=== PATIENT | male | born 1940 | race Caucasian/White ===

== ENCOUNTER 2022-02-22 16:41 | Emergency (ER) | payer MEDICARE, MEDICAID ==
[~2022-02-22] VITALS: Ht 162.5 cm; Wt 110.0 kg
[~2022-02-22 16:41] MED LIST: AC500T PO; AMLO1TAB65 PO; ASP81CT PO; ATR20T PO; CALC625T PO; CLN.1T PO; CPAP; DIPH25TA82 PO; DORZ10DR19 OU; FISH1200 PO; FLUT50DI IH; FNT25TD TD; FURO80TA3 PO; HYDR-3720 PO; LORA10TA56 PO; METAMUCIL PO; MUPI22OI29 TP; NFNEB10T PO; OXYGEN; VIT1CAPS5 PO; WARF7.5T PO
[2022-02-22 16:49] VITALS: BP 167/88
[2022-02-22] MEDS ORDERED: PRD20T PO (17:30)
--- NOTE | 2022-02-22 17:30 | ED Back Pain ---
General Chief Complaint: Back Problems Stated Complaint: BACK PAIN Nursing Triage Note: pt to room by wheelchair. pt states he drove himself here. pt states he started physical therapy last week and began having back pain the day after PT. pt states his back pain is in his right lower side and describes it as sharp, shooting, and stabbing. pt states he has been taking tylenol and took an oxycodone about 30-45 mins [employer] Source of Information: Patient Exam Limitations: No Limitations History of Present Illness Date Seen by Provider: February 22, 2022 Time Seen by Provider: 17:10 Allergies and Home Medications Allergies Coded Allergies: Brimonidine (Unverified Adverse Reaction, 06/02/10) Patient Home Medication List Acetaminophen (Tylenol) 500 Mg Tablet, 1-2 TAB PO Q6HR PRN, (Reported) Entered as Reported by: GUNNER TUTTLE on 06/02/10606 Amlodipine Bes/Olmesartan Med (Matheus 10-40 Mg Tablet) 1 Each Tablet, 1 TAB PO Q P.M., (Reported) Entered as Reported by: GUNNER TUTTLE on 06/02/10606 Aspirin (Aspirin 81 Mg Chew Tab) 81 Mg Chew, 81 MG PO DAILY, (Reported) Entered as Reported by: GUNNER TUTTLE on 06/02/10606 Atorvastatin (Lipitor 20MG) 20 Mg Tablet, 1 TAB PO DAILY, (Reported) Entered as Reported by: GUNNER TUTTLE on 06/02/10606 Calcium Polycarbophil (Fibercon) 625 Mg Tablet, 2-4 CAP PO PRN, (Reported) Entered as Reported by: GUNNER TUTTLE on 06/02/10606 Clonidine Hcl (Catapres Tab) 0.1 Mg Tab, 0.6 MG PO BID, (Reported) Entered as Reported by: GUNNER TUTTLE on 06/02/10606 Diphenhydramine Hcl (Diphenhydramine 25 Mg) 25 Mg Tablet, 25 MG PO HS PRN, ( Reported) Entered as Reported by: GUNNER TUTTLE on 06/02/10606 Fentanyl (Duragesic 25MCG Patch) 1 Ea Patch, 1 PATCH TD Q72HR, (Reported) Entered as Reported by: GUNNER TUTTLE on 06/02/10606 Fish Oil/Fat No.8/Hrb Comb.137 ([place] 3-6-9 1,200 Mg Softgel) 1,200 Mg Capsule, 2 TAB PO BID, (Reported) Entered as Reported by: GUNNER TUTTLE on 06/02/10606 Fluticasone Propionate (Flovent Diskus) 50 Mcg Disk.w.dev, 2 SPRAY IH 1-2 TIMES MONTHLY, (Reported) Entered as Reported by: GUNNER TUTTLE on 06/02/10606 Furosemide (Furosemide) 80 Mg Tablet, 1 TAB PO EVERY 3RD DAY, (Reported) Entered as Reported by: GUNNER TUTTLE on 06/02/10606 Hydrocodone Bit/Acetaminophen (Lortab 10-325 Mg) 1 Ea Tab, 2 TAB PO Q6HR PRN, (Reported) Entered as Reported by: GUNNER TUTTLE on 06/02/10606 Loratadine (Allergy) 10 Mg Tablet, 1 TAB PO PRN, (Reported) Entered as Reported by: GUNNER TUTTLE on 06/02/10606 Mupirocin (Bactroban Tube) 22 Gm Oint, 1 UNIT TP BID, (Reported) Entered as Reported by: GUNNER TUTTLE on 06/02/10606 Nebivolol Hcl (Bystolic) 10 Mg Tablet, 10 MG PO DAILY, (Reported) Entered as Reported by: GUNNER TUTTLE on 06/02/10606 Timolol Maleate/Dorzolam Hcl (Dorzolamide-Timolol Eye Drops) 10 Ml Drops, 1 DROP OU BID, (Reported) Entered as Reported by: GUNNER TUTTLE on 06/02/10606 Vit A/Vit C/Vit E/Zinc/Copper (Preservision Areds Softgel) 1 Each Capsule, 1 TAB PO BID, (Reported) Entered as Reported by: GUNNER TUTTLE on 06/02/10606 Warfarin Sod (Coumadin) 7.5 Mg Tablet, 1 TAB PO Q P.M., (Reported) Entered as Reported by: GUNNER TUTTLE on 06/02/10606 [Cpap] , (Reported) Entered as Reported by: GUNNER TUTTLE on 06/02/10606 [Metamucil] , 4-5 CAP PO DAILY, (Reported) Entered as Reported by: GUNNER TUTTLE on 06/02/10606 [Oxygen] , (Reported) Entered as Reported by: GUNNER TUTTLE on 06/02/10 06 Physical Exam Vital Signs Vital Signs - First Documented 02/22/22 16:49 Temp 36.3 Pulse 64 Resp 16 B/P (MAP) 167/88 (114) Pulse Ox 99 Capillary Refill : Height, Weight, BMI Height: '" Weight: lbs. oz. kg; 41.00 BMI Method: Progress/Results/Core Measures Results/Orders Vital Signs/I&O 02/22/22 16:49 Temp 36.3 Pulse 64 Resp 16 B/P (MAP) 167/88 (114) Pulse Ox 99 Blood Pressure Mean: 114 Departure Impression Primary Impression: Lumbar radiculopathy Disposition: HOME, SELF-CARE Condition: Stable Departure-Patient Inst. Decision time for Depature: 17:28 Referrals: YANET HAMMONDS MD (PCP) Primary Care Physician Patient Instructions: Radiculopathy Add. Discharge Instructions: Plan: 1. Follow up with your personnel placement specialist as previously scheduled. 2. Take Prednisone twice a day for 4 days with food. 3. May take Pepcid over the counter to protect your stomach. 4. Use ice 20minutes followed by 20 minutes of heat. 5. May continue your home Oxycodone as previously directed. 6. Return for any new, concerning, or worsening symptoms. All discharge instructions reviewed with patient and/or family. Voiced understanding. Scripts Prednisone (Prednisone) 20 Mg Tab 20 MG PO BID for 4 Days, #8 TAB 0 Refills Prov: JAMIE ALARCON [employer]ER 02/22/22 JAMIE ALARCON [employer] BUYER February 22, 2022 17:30
== END 2022-02-22 17:45 | disposition home or self-care (01) ==
LOC: EDUNIT# 16:41 → ER 16:43
DX: M54.16 Radiculopathy, lumbar region (principal)
CPT/HCPCS: 99281

== ENCOUNTER 2022-04-03 16:13 | Emergency (ER) | payer MEDICARE, MEDICAID ==
[~2022-04-03] VITALS: Ht 162 cm; Wt 106.0 kg
[~2022-04-03 16:13] MED LIST changes: +PRD20T PO
--- NOTE | 2022-04-03 16:36 | ED Integumentary General ---
General Chief Complaint: Skin/Wound Problems Stated Complaint: NOTICED "BLOOD ON BUTTCRACK" Source: patient Exam Limitations: no limitations History of Present Illness Date Seen by Provider: Apr 03, 2022 Time Seen by Provider: 16:34 Initial Comments Patient is a 81-year-old male who presents ED with rash near his gluteal cleft. Patient states he went to the bathroom to urinate and noticed some redness and blood on his shirt this afternoon. Patient wiped around his buttock area and had a tinge of blood on the toliet paper. Denies of any specific pain. Patient states he has a fungal rash around his groins and thought this may be related to a fungal infection versus a pilonidal cyst with a history when he was 14 years of age. Denies of any difficulty with bowel movement, or bloody stool. Did have lumbar injections and SI injections performed last week at for chronic low back pain. Does use ketoconazole for his groin rash with improvement. Denies fever, chills, abdominal pain, chest pain, shortness of breath, nausea, vomiting, diarrhea Allergies and Home Medications Allergies Coded Allergies: brimonidine (Unverified Adverse Reaction, Unknown, 04/03/22) Patient Home Medication List Home Medication List Reviewed: Yes Acetaminophen (Tylenol) 500 Mg Tablet, 1-2 TAB PO Q6HR PRN, (Reported) Entered as Reported by: GUNNER TUTTLE on 06/02/10606 Amlodipine Bes/Olmesartan Med (Matheus 10-40 Mg Tablet) 1 Each Tablet, 1 TAB PO Q P.M., (Reported) Entered as Reported by: GUNNER TUTTLE on 06/02/10606 Aspirin (Aspirin 81 Mg Chew Tab) 81 Mg Chew, 81 MG PO DAILY, (Reported) Entered as Reported by: GUNNER TUTTLE on 06/02/10606 Atorvastatin (Lipitor 20MG) 20 Mg Tablet, 1 TAB PO DAILY, (Reported) Entered as Reported by: GUNNER TUTTLE on 06/02/10606 Calcium Polycarbophil (Fibercon) 625 Mg Tablet, 2-4 CAP PO PRN, (Reported) Entered as Reported by: GUNNER TUTTLE on 06/02/10606 Cephalexin (Cephalexin) 500 Mg Tablet, 500 MG PO TID Prescribed by: ALISSON SARABIA on 04/03/22 1644 Clonidine Hcl (Catapres Tab) 0.1 Mg Tab, 0.6 MG PO BID, (Reported) Entered as Reported by: GUNNER TUTLTE on 06/02/10606 Diphenhydramine Hcl (Diphenhydramine 25 Mg) 25 Mg Tablet, 25 MG PO HS PRN, (Reported) Entered as Reported by: GUNNER TUTTLE on 06/02/10606 Fentanyl (Duragesic 25MCG Patch) 1 Ea Patch, 1 PATCH TD Q72HR, (Reported) Entered as Reported by: GUNNER TUTTLE on 06/02/10606 Fish Oil/Fat No.8/Hrb Comb.137 ([place] 3-6-9 1,200 Mg Softgel) 1,200 Mg Capsule, 2 TAB PO BID, (Reported) Entered as Reported by: GUNNER TUTTLE on 06/02/10606 Fluticasone Propionate (Flovent Diskus) 50 Mcg Disk.w.dev, 2 SPRAY IH 1-2 TIMES MONTHLY, (Reported) Entered as Reported by: GUNNER TUTTLE on 06/02/10606 Furosemide (Furosemide) 80 Mg Tablet, 1 TAB PO EVERY 3RD DAY, (Reported) Entered as Reported by: GUNNER TUTTLE on 06/02/10606 Hydrocodone Bit/Acetaminophen (Lortab 10-325 Mg) 1 Ea Tab, 2 TAB PO Q6HR PRN, (Reported) Entered as Reported by: GUNNER TUTTLE on 06/02/10606 Loratadine (Allergy) 10 Mg Tablet, 1 TAB PO PRN, (Reported) Entered as Reported by: GUNNER TUTTLE on 06/02/10606 Mupirocin (Bactroban Tube) 22 Gm Oint, 1 UNIT TP BID, (Reported) Entered as Reported by: GUNNER TUTTLE on 06/02/10606 Nebivolol Hcl (Bystolic) 10 Mg Tablet, 10 MG PO DAILY, (Reported) Entered as Reported by: GUNNER TUTTLE on 06/02/10606 Prednisone (Prednisone) 20 Mg Tab, 20 MG PO BID Prescribed by: JAMIE ALARCON on 02/22/22 1730 Timolol Maleate/Dorzolam Hcl (Dorzolamide-Timolol Eye Drops) 10 Ml Drops, 1 DROP OU BID, (Reported) Entered as Reported by: GUNNER TUTTLE on 06/02/10606 Vit A/Vit C/Vit E/Zinc/Copper (Preservision Areds Softgel) 1 Each Capsule, 1 TAB PO BID, (Reported) Entered as Reported by: GUNNER TUTTLE on 06/02/10606 Warfarin Sod (Coumadin) 7.5 Mg Tablet, 1 TAB PO Q P.M., (Reported) Entered as Reported by: GUNNER TUTTLE on 06/02/10606 [Cpap] , (Reported) Entered as Reported by: GUNNER TUTTLE on 06/02/10606 [Metamucil] , 4-5 CAP PO DAILY, (Reported) Entered as Reported by: GUNNER TUTTLE on 06/02/10606 [Oxygen] , (Reported) Entered as Reported by: GUNNER TUTTLE on 06/02/10606 Review of Systems Review of Systems Constitutional: No chills, No diaphoresis, No malaise, No weakness EENTM: No blurred vision, No double vision Respiratory: No cough Cardiovascular: No chest pain Gastrointestinal: No abdominal pain, No diarrhea, No nausea, No vomiting Genitourinary: No decreased output, No discharge Musculoskeletal: No back pain, No joint pain, No joint swelling, No muscle pain Skin: change in color, rash All Other Systems Reviewed Negative Unless Noted: Yes Past Dnpwhhi-Toehie-Gvhlyy Hx Patient Social History Tobacco Use?: No Substance use?: No Alcohol Use?: No Pt feels they are or have been: No Immunizations Up To Date First/Initial COVID19 Vaccinat: 11/22 Second COVID19 Vaccination Mookie: 12/20 Third COVID19 Vaccination Date: 01/21 COVID19 Vaccine [employer] Consultant: LOU Past Medical History Surgery/Hospitalization HX: SEE ATTATCHED HX Physical Exam Vital Signs Vital Signs - First Documented 04/03/22 16:15 Temp 36.6 Pulse 67 Resp 18 B/P (MAP) 170/80 (110) Pulse Ox 95 Capillary Refill : General Appearance: WD/WN, no apparent distress HEENT: PERRL/EOMI, normal ENT inspection, TMs normal, pharynx normal Neck: non-tender, full range of motion, supple Cardiovascular: regular rate, rhythm, no edema, no gallop, no JVD Respiratory: chest non-tender, lungs clear, normal breath sounds, no respiratory distress, no accessory muscle use Gastrointestinal: normal bowel sounds, non tender, soft Back: normal inspection, no CVA tenderness, no vertebral tenderness Extremities: normal range of motion, non-tender, normal inspection Skin: other (Erythema and swelling with satellite lesions in the upper gluteal cleft. Skin irritation with mild bleeding) Progress/Results/Core Measures Results/Orders Vital Signs/I&O 04/03/22 04/03/22 16:15 17:00 Temp 36.6 36.6 Pulse 67 67 Resp 18 18 B/P (MAP) 170/80 (110) 170/80 Pulse Ox 95 95 Departure Communication (PCP) On exam there is appear to be a fungal infection to the upper gluteal cleft. On palpation no palpable abscess. He denies of any pain but noticed small drainage around his shirt as well as wiping bright red blood. Mild bleeding noted to the rash. Does have a similar rash around his groin makes me believe this is more of a fungal infection. He states he had a history of a pilonidal cyst as a teenager. Discussed with patient that this does not appear to be a pilnoidal cyst at this time and appears to be more fungal may have underlying superficial cellulitic infection but does not appear to be a typical pilonidal cyst. He does have ketoconazole at home which I recommend continue. Discussed keeping the area dry and clean. A lot of moisture in this area with his skin folds. We will discharge with Keflex for possible superimposed bacterial infection. If any developing pain, size he needs return back to ED for further evaluation. Elevated blood pressure reading here. Continue monitoring blood pressure at home. Currently asymptomatic. Impression Primary Impression: Rash Disposition: HOME, SELF-CARE Condition: Stable Departure-Patient Inst. Decision time for Depature: 16:42 Referrals: YANET HAMMONDS MD (PCP) Primary Care Physician Patient Instructions: Fungal Skin Rash (DC) Add. Discharge Instructions: Recommend applying your ketoconazole topical antifungal to the rash. Antibiotics for secondary infection. Recommend follow-up with your PCP in 2 to 3 days for reevaluation. Keep the area dry and clean. If developing pain to return back to ED for further evaluation All discharge instructions reviewed with patient and/or family. Voiced understanding. Scripts Cephalexin (Cephalexin) 500 Mg Tablet 500 MG PO TID for 7 Days, #21 TAB Prov: MARILUZ MILLER 04/03/22 MARILUZ MILLER Apr 03, 2022 16:36
[2022-04-03] MEDS ORDERED: CEPH500T PO ×2 (16:43→16:44)
[2022-04-03 17:00] VITALS: BP 170/80
== END 2022-04-03 17:00 | disposition home or self-care (01) ==
LOC: EDUNIT# 16:13 → ER 16:15
DX: R21 Rash and other nonspecific skin eruption (principal); R03.0 Elevated blood-pressure reading, without diagnosis of hypertension
CPT/HCPCS: 99281